=== PATIENT | female | born 1980 | race Caucasian/White ===

== ENCOUNTER 2017-12-05 19:31 | Emergency (ER) | payer BC ==
[2017-12-05 20:00] VITALS: BP 132/82
[2017-12-05] MEDS ORDERED: KETOROLAC 60 MG/2 ML VIAL. IM ONE (20:15)
[2017-12-05] MEDS ORDERED: ONDANSETRON ODT 4 MG TAB.RAPDIS PO ONE (20:15)
[2017-12-05] MEDS ORDERED: ACET-704 PO (20:32)
[2017-12-05] MEDS ORDERED: ONDA4TAB10 SL (20:32)
--- NOTE | 2017-12-05 20:32 | PHYS DOC ---
Past History Past Medical History: Anxiety Smoking: Non-smoker Adult General Chief Complaint Chief Complaint: ABDOMINAL PAIN HPI HPI 37-year-old female patient states she had IUD insertion today at 1600 pain after insertion of IUD but her doctor told her IUD is in the right place. Patient complaining of nausea and more than 10 episodes of vomiting and severe abdominal pain as a sharp pain with radiation to her back. She denies vaginal bleeding . Patient rated her pain 10 over 10 and asking for removal of the IUD. Patient states she called her SAL[employer] SERVICE [employer]INEER and he recommended to go to the emergency room for the moving of her IUD Review of Systems Review of Systems Constitutional: Denies fever or chills [] Eyes: Denies change in visual acuity, redness, or eye pain [] HENT: Denies nasal congestion or sore throat [] Respiratory: Denies cough or shortness of breath [] Cardiovascular: No additional information not addressed in HPI [] GI: Reports abdominal pain, nausea, vomiting, denies bloody stools or diarrhea [ ] : Denies dysuria or hematuria [] Musculoskeletal: Denies back pain or joint pain [] Integument: Denies rash or skin lesions [] Neurologic: Denies headache, focal weakness or sensory changes [] Endocrine: Denies polyuria or polydipsia [] All other systems were reviewed and found to be within normal limits, except as documented in this note. Current Medications Current Medications Current Medications Medications (Trade) Dose Ordered Sig/[facility] Start Time Stop Time Status Last Admin Dose Admin Ketorolac Tromethamine (Toradol) 60 mg 1X ONCE 12/05/17 20:15 12/05/17 20:16 DC 12/05/17 20:22 60 MG Ondansetron HCl (Zofran Odt) 4 mg 1X ONCE 12/05/17 20:15 12/05/17 20:16 DC 12/05/17 20:22 4 MG Allergies Allergies Allergies Coded Allergies Type Severity Reaction Last Updated Verified No Known Drug Allergies 12/05/17 No Physical Exam Physical Exam Constitutional: Well nourished, no acute distress, non-toxic appearance. [] HENT: Normocephalic, atraumatic, bilateral external ears normal, oropharynx moist, no oral exudates, nose normal. [] Eyes: PERRLA, EOMI, conjunctiva normal, no discharge. [] Neck: Normal range of motion, no tenderness, supple, no stridor. [] Cardiovascular:Heart rate regular rhythm, no murmur [] Lungs & Thorax: Bilateral breath sounds clear to auscultation [] Abdomen: Bowel sounds normal, soft, no tenderness, no masses, no pulsatile masses. [] Skin: Warm, dry, no erythema, no rash. [] Back: No tenderness, no CVA tenderness. [] Extremities: No tenderness, no cyanosis, no clubbing, ROM intact, no edema. [] Neurologic: Alert and oriented X 3, normal motor function, normal sensory function, no focal deficits noted. [] Psychologic: Anxious Patient refuses vaginal exam. EKG EKG [] Radiology/Procedures Radiology/Procedures [] Course & Med Decision Making Course & Med Decision Making Evaluation of patient in ER showed 37-year-old female patient with complaining of severe pelvic pain with nausea and vomiting after instillation of IUD today. Patient was very anxious at arrival to ER with unremarkable abdominal exam. Patient refuses IV line and labs and ultrasound or CT of abdomen and vaginal exam.. Patient wanted only pain and nausea medicine and stated she has plan to follow up with her SALES AND SERVICE ENGINEER tomorrow. Dragon Disclaimer Dragon Disclaimer This electronic medical record was generated, in whole or in part, using a voice recognition dictation system. Departure Departure: Impression: Primary Impression: Abdominal pain Additional Impressions: Nausea & vomiting Anxiety Patient non-compliant, refused service Disposition: HOME, SELF-CARE (At 2039) Condition: IMPROVED Referrals: MARLEN ROD (PCP) Patient Instructions: Abdominal Pain, Nausea and Vomiting Additional Instructions: Follow-up with your SALES AND SERVICE ENGINEER physician in one day Scripts Acetaminophen With Codeine (TYLENOL WITH CODEINE #3 TABLET) 1 Each Tablet 1 TAB PO Q6HRS, #12 TAB Prov: HEATH TURNER MD 12/05/17 Ondansetron (ZOFRAN ODT) 4 Mg Tab.rapdis 1 TAB SL Q8HRS, #15 TAB Prov: HEATH TURNER MD 12/05/17 Problem Qualifiers HEATH TURNER MD Dec 05, 2017 20:32
== END 2017-12-05 20:37 | disposition home or self-care (01) ==
LOC: ER 19:31
DX: R11.2 Nausea with vomiting, unspecified (principal); R10.9 Unspecified abdominal pain; F41.9 Anxiety disorder, unspecified; Z91.19 Patient's noncompliance with other medical treatment and regimen
CPT/HCPCS: 96372; 99283; J1885; Q0162

== ENCOUNTER → 2019-12-19 | Outpatient (CLI) | payer BC, OTHER ==
[~2019-12-19] MED LIST: ACET-704 PO; ONDA4TAB10 SL
--- NOTE | 2019-12-20 10:28 | RAD ---
Examination: THYROID ULTRASOUND History: Hypothyroidism Comparison/Correlation: None Findings: Thyroid ultrasound exam was performed. Right thyroid lobe measures 2.6 cm x 1.1 cm x 0.8. Left thyroid lobe measures 2.6 cm x 0.7 cm x 0.7 cm. Thyroid gland is diffusely atrophic and heterogeneous in appearance. No mass identified. Thyroid isthmus is of normal thickness. Normal flow identified. Impression: Diffusely atrophic thyroid gland. Electronically signed by: Nasim Bridges MD (12/20/2019 10:25 AM) [facility]
== END | disposition home or self-care (01) ==
LOC: US 15:09
PROVIDERS: ATTEND Physician Assistant Medical
DX: E03.4 Atrophy of thyroid (acquired) (principal); E03.9 Hypothyroidism, unspecified
CPT/HCPCS: 76536